=== PATIENT | female | born 1995 | race Caucasian/White ===

== ENCOUNTER 2017-03-25 17:12 | Emergency (ER) | payer OTHER ==
--- NOTE | 2017-03-25 18:09 | EDPHY ---
H & P Time Seen by Provider: 03/25/17 17:57 HPI/ROS: CHIEF COMPLAINT: Nausea, anxiety, chest tightness HISTORY OF PRESENT ILLNESS: The patient is a 21 y/o female with depression and anxiety complaining of worsening nausea and anxiety for the past 3 weeks. For the past 3 days she has been feeling more anxious and has been unable to leave her room. She associates this to having "no energy or interest". She believes her anxiety has increased due to an increase in stress in her life. She has been off Prozac for several weeks, because she thought that she did not needed. She restarted Prozac yesterday as she felt that it might help her symptoms. She has had a cough and cold for 2 weeks, resolving now. Yesterday she was seen at [facility] and given Zofran for nausea and a steroid for cough. No suicidal or homicidal ideation. REVIEW OF SYSTEMS: Aside from elements discussed in the HPI, a comprehensive 10-point review of systems was reviewed and is negative. Past Medical/Surgical History: Depression, PTSD, PCOS Social History: Friend at bedside, lives in [place], smokes marijuana Smoking Status: Never smoked Physical Exam: General Appearance: Anxious, pressured speech Eyes: Pupils equal and round, no conjunctival pallor ENT, Mouth: Mucous membranes moist Neck: Normal inspection Respiratory: Lungs are clear to auscultation Cardiovascular: Regular rate and rhythm Gastrointestinal: Abdomen is soft and non-tender Neurological: A&O, nonfocal exam Skin: Warm and dry Extremities: Normal inspection Psychiatric: Anxious Constitutional: Initial Vital Signs Temperature (C) 36.6 C 03/25/17 17:21 Heart Rate 84 03/25/17 17:21 Respiratory Rate 22 H 03/25/17 17:21 Blood Pressure 130/83 H 03/25/17 17:21 O2 Sat (%) 96 03/25/17 17:21 O2 Delivery Mode Room Air Allergies/Adverse Reactions: No Known Allergies Allergy (Verified 03/25/17 17:20) Home Medications: Medication Instructions Recorded Bcp 01/26/16 Prozac 40 mg 01/26/16 Medical Decision Making - Diagnostics EKG Interpretation: EKG interpreted by me reveals normal sinus rhythm with a rate of 74, normal axis , normal intervals, ST and T segments normal. Interpretation: normal EKG Imaging: I viewed and interpreted images myself ED Course/Re-evaluation: The patient is a 21 y/o female presenting with anxiety, nausea, and chest tightness that has been worsening over the last 3 weeks. I think that her symptoms are secondary to underlying anxiety disorder. Laboratory tests and EKG performed to rule out other etiology of sx. Ativan 1 mg orally given. 1854: EKG interpreted by me as normal. Laboratory tests are normal. 1855: Reassessed patient and discussed imaging results. I have also advised her to visit [facility] tomorrow. Return precautions provided; patient is comfortable with this plan. Differential Diagnosis: Differential diagnosis includes though is not limited to hypoglycemia, , gastritis, pneumonia. - Data Points Laboratory Results: Laboratory Results 03/25/17 18:36 03/25/17 18:36 Medications Given: Discontinued Medications Lorazepam (Ativan) 1 mg PO EDNOW ONE Stop: 03/25/17 18:23 Last Admin: 03/25/17 18:38 Dose: 1 mg Departure - Departure Disposition: Home, Routine, Self-Care Clinical Impression: Nausea, Anxiety Condition: Good Instructions: Acute Nausea and Vomiting (ED), Anxiety (ED) Additional Instructions: 1. Follow up with [facility] tomorrow. 2. Return to the ED if you experience chest pain, shortness of breath, fever or other worsening of your symptoms. Referrals: [facility],. [Clinic] - As per Instructions Report Scribed for: Brenda Tirado Report Scribed by: Madalyn Cassidy Date of Report: 03/25/17 Time of Report: 18:09 Physician Review and Approval Statement: 03/25/17 18:09 Portions of this note were transcribed by a medical review coordinator. I personally performed a history, physical exam, medical decision making, and confirmed accuracy of information the transcribed note.
[2017-03-25] MEDS ORDERED: LORazepam 1 MG TAB PO ONE (18:22)
[2017-03-25 18:49] LABS: % IMMATURE GRANULYOCYTES 0.2 % (0.0-1.1); ABSOLUTE IMMATURE GRANULOCYTES 0.01 10^3/uL (0.00-0.10); ADD DIFF? NO; ADD MORPH? NO; ADD SCAN? NO; ATYPICAL LYMPHOCYTE FLAG 0 (0-99); FRAGMENT RBC FLAG 0 (0-99); HEMATOCRIT 43.1 % (38.0-47.0); HEMOGLOBIN 14.9 g/dL (12.6-16.3); LEFT SHIFT FLG 0 (0-99); LIPEMIA HEMOLYSIS FLAG 90 (0-99); MEAN CELL HEMOGLOBIN 31.9 pg (27.9-34.1); MEAN CELL HEMOGLOBIN CONCENTR. 34.6 g/dL (32.4-36.7); MEAN CELL VOLUME 92.3 fL (81.5-99.8); MEAN PLATELET VOLUME 9.6 fL (8.7-11.7); PLATELET CLUMPS FLAG 0 (0-99); PLATELET COUNT 364 10^3/uL (150-400); RED BLOOD CELL COUNT 4.67 10^6/uL (4.18-5.33); RED CELL DISTRIBUTION WIDTH 11.9 % (11.5-15.2)
--- NOTE | 2017-03-25 18:55 | CPEKG ---
Heart Rate: 74 RR Interval: 811 P-R Interval: 164 QRSD Interval: 72 QT Interval: 380 QTC Interval: 422 P [place]: 40 QRS [place]: 47 T [place]: 29 EKG Severity - NORMAL ECG - EKG Impression: SINUS RHYTHM Electronically Signed By: Brenda Tirado 25-Mar-2017 21:30:03
[2017-03-25 19:07] LABS: ANION GAP 16 mEq/L (8-16); CALCIUM 10.5 mg/dL (8.5-10.4); CARBON DIOXIDE 23 mEq/l (22-31); CHLORIDE 101 mEq/L (97-110); CREATININE 0.6 mg/dL (0.6-1.0); GLOMERULAR FILTRATION RATE > 60; GLUCOSE 124 mg/dL (70-100); SODIUM 140 mEq/L (134-144)
[2017-03-25 19:41] VITALS: BP 112/76; PULSE 88; RESP 16; TEMP 98.4; O2SAT 95
== END 2017-03-25 19:33 | disposition home or self-care (01) ==
DX: R11.0 Nausea (principal); F41.9 Anxiety disorder, unspecified